=== PATIENT | male | born 1955 | race Caucasian/White ===

== ENCOUNTER 2020-10-03 14:34 | Inpatient (IN) | payer MEDICARE, BC, OTHER ==
[~2020-10-03 14:34] MED LIST: Iopamidol-370 76% 500 ML 1 ML ONE
[2020-10-03 15:09] LABS: #Lymphocytes 0.8 thou/uL (1.20-3.40); #Monocytes 0.7 thou/uL (0.11-0.59); %Basophils 0.2 % (0.0-1.0); %Eosinophils 0.3 % (0.0-10.0); %Lymphocytes 6.3 % (21.0-51.0); %Monocytes 5.5 % (0.0-10.0); %Neutrophils 87.7 % (42.0-75.0); Hemoglobin 14.5 g/dL (14.0-18.0); Mean Corpuscular HGB CONC 32.4 g/dL (32.0-36.0); Mean Corpuscular Hemoglobin 29.9 pg (27.0-31.0); Mean Corpuscular Volume 92.3 fL (78.0-98.0); Mean Platelet Volume 7.7 fL (7.4-10.4); Platelet Count 189 thou/uL (130-400); RBC Distribution Width 12.4 % (11.5-14.5); Red Blood Cell (RBC) Count 4.86 mill/uL (4.70-6.10); White Blood Cell (WBC) Count 12.5 thou/uL (4.8-10.8)
[2020-10-03 15:29] LABS: ALT (SGPT) 24 U/L (8-55); AST (SGOT) 15 U/L (5-34); Albumin 3.9 g/dL (3.4-4.8); Alkaline Phosphatase 102 U/L (40-110); Anion Gap 12 mmol/L (10-20); BUN (Urea Nitrogen) 13 mg/dL (8.4-25.7); Bilirubin, Total 0.9 mg/dL (0.2-1.2); Calc. Creatinine Clearance 0 mL/min (70-130); Calcium 8.3 mg/dL (7.8-10.44); Carbon Dioxide 24 mmol/L (23-31); Chloride 110 mmol/L (98-107); Globulin 2.8 g/dL (2.4-3.5); Glucose 153 mg/dL (80-115); Potassium 3.9 mmol/L (3.5-5.1); Protein, Total 6.7 g/dL (5.8-8.1); Sodium 142 mmol/L (136-145)
[2020-10-03 16:06] LABS: Bacteria/HPF None Seen HPF (None Seen); Bilirubin Negative (Negative); Blood, Urine Negative (Negative); Clarity Clear (Clear); Glucose, Urine (Dipstick) Normal (Negative); Ketone, Urine Negative (Negative); Leukocyte Negative Leu/uL (Negative); Nitrite Negative (Negative); Protein, Urine (Dipstick) 70 mg/dL (Neg-Trace); RBC/HPF 0-3 HPF (0-3); Specific Gravity, Urine 1.024 (1.002-1.036); Squamous Epithelial None Seen HPF (0-3); WBC/HPF 0-3 HPF (0-3); pH, Urine 5.5 (5.0-9.0)
[2020-10-03] MEDS ORDERED: Aspirin Chewable 81 MG TAB ONE (16:25)
[2020-10-03] MEDS ORDERED: Nitroglycerin 0.4 MG TAB (25 Tab Bottle) SL PRN (18:19)
[2020-10-03 18:22] LABS: Troponin I 0.039 ng/mL (< 0.028)
[2020-10-03] MEDS ORDERED: Senokot S 8.6-50 MG TAB PO PRN (18:27)
[2020-10-03] MEDS ORDERED: HYDROcodone/Acetaminophen 5/325 mg Tablet PO PRN (18:27)
[2020-10-03] MEDS ORDERED: Ondansetron ODT 4 MG TAB PO PRN (18:27)
[2020-10-03] MEDS ORDERED: Calcium Carbonate 500 MG ChewTAB PO PRN (18:27)
[2020-10-03] MEDS ORDERED: Acetaminophen 325 MG TAB PO PRN (18:27)
[2020-10-03] MEDS ORDERED: Ondansetron PF 4 MG/2 ML Vial IVP PRN (18:27)
[2020-10-03 19:56] LABS: Acetaminophen Less than 6.0 mcg/mL (10.0-30.0); Alcohol Less than 10 mg/dL (Less than 10); Salicylate Less than 8.0 mg/dL (15.0-30.0)
[2020-10-03 20:19] LABS: Troponin I 0.039 ng/mL (< 0.028)
[2020-10-03] MEDS ORDERED: Famotidine/PF 20 mg/2ml Vial SLOW IVP SCH (21:00)
[2020-10-03] MEDS: Famotidine 20 MG TAB PO SCH (21:25)
[2020-10-03 21:53] LABS: Amphetamine Not Detected (NotDetected); Barbiturates Screen Not Detected (NotDetected); Benzodiazepine Screen Not Detected (NotDetected); Cocaine Metabolite Screen Not Detected (NotDetected); Medtox Control Line Valid? VALID (VALID); Medtox Reader # READER 4; Methadone Not Detected (NotDetected); Methamphetamine Not Detected (NotDetected); Opiate Screen Not Detected (NotDetected); Oxycodone Screen Not Detected (NotDetected); Phencyclidine (PCP) Not Detected (NotDetected); THC/Cannabinoid Screen Not Detected (NotDetected); Tricyclic Screen Not Detected (NotDetected)
[2020-10-04] MEDS ORDERED: Acetaminophen 500 MG TAB PO SCH (00:45)
[2020-10-04 04:57] LABS: #Eosinphils 0.1 thou/uL (0.0-0.7); #Lymphocytes 1.8 thou/uL (1.20-3.40); #Monocytes 0.6 thou/uL (0.11-0.59); #Neutrophils 5.3 thou/uL (1.40-6.50); %Basophils 0.5 % (0.0-1.0); %Eosinophils 1.4 % (0.0-10.0); %Lymphocytes 23.2 % (21.0-51.0); %Neutrophils 66.9 % (42.0-75.0); Hemoglobin 13.3 g/dL (14.0-18.0); Mean Corpuscular HGB CONC 32.6 g/dL (32.0-36.0); Mean Corpuscular Hemoglobin 30.2 pg (27.0-31.0); Mean Corpuscular Volume 92.6 fL (78.0-98.0); Mean Platelet Volume 7.6 fL (7.4-10.4); Platelet Count 173 thou/uL (130-400); RBC Distribution Width 12.5 % (11.5-14.5); Red Blood Cell (RBC) Count 4.39 mill/uL (4.70-6.10); White Blood Cell (WBC) Count 7.9 thou/uL (4.8-10.8)
[2020-10-04 05:00] LABS: Hemoglobin A1c 5.1 % (4.0-6.0)
[2020-10-04 05:16] LABS: Anion Gap 10 mmol/L (10-20); BUN (Urea Nitrogen) 13 mg/dL (8.4-25.7); Calc. Creatinine Clearance 97 mL/min (70-130); Calcium 7.8 mg/dL (7.8-10.44); Carbon Dioxide 21 mmol/L (23-31); Cardiac Risk 3.8 (Less than 4.5); Chloride 114 mmol/L (98-107); Cholesterol 148 mg/dl (< 200 Desired); Glucose 102 mg/dL (80-115); HDL Cholesterol 39 mg/dL (>60 Neg Risk); LDL Cholesterol, Calculated 92 mg/dL; Potassium 4.1 mmol/L (3.5-5.1); Sodium 141 mmol/L (136-145); Triglycerides 85 mg/dL (Less than 150)
[2020-10-04 05:53] LABS: SARS-CoV-2 PCR by NAA Not Detected (NotDetected)
[2020-10-04] MEDS: Famotidine 20 MG TAB PO SCH ×2 (07:46→20:16)
[2020-10-04] MEDS ORDERED: Aspirin Chewable 81 MG TAB PO SCH (09:00)
[2020-10-04] MEDS ORDERED: Iopamidol 370 76% 100 ML VIAL ONE (10:44)
[2020-10-04] MEDS ORDERED: Lidocaine 1% (PF) 30 ML VIAL ONE (11:43)
[2020-10-04] MEDS ORDERED: Fentanyl 100 MCG/2 ML VIAL ONE (12:23)
[2020-10-04] MEDS ORDERED: Midazolam HCl 2 mg/2 ml Vial ONE (12:23)
[2020-10-04] MEDS ORDERED: Fioricet 325/50/40 mg Tablet PO PRN (14:19)
[2020-10-04] MEDS ORDERED: Diazepam 5 MG TAB PO PRN (21:01)
[2020-10-04] MEDS ORDERED: Communication Order-Pharmacy FS ONE (21:01)
[2020-10-05 05:21] LABS: #Basophils 0.1 thou/uL (0.0-0.2); #Eosinphils 0.2 thou/uL (0.0-0.7); #Lymphocytes 1.8 thou/uL (1.20-3.40); #Neutrophils 7.3 thou/uL (1.40-6.50); %Basophils 0.6 % (0.0-1.0); %Eosinophils 2.4 % (0.0-10.0); %Lymphocytes 17.6 % (21.0-51.0); %Monocytes 9.8 % (0.0-10.0); %Neutrophils 69.7 % (42.0-75.0); Hemoglobin 14.7 g/dL (14.0-18.0); Mean Corpuscular HGB CONC 32.3 g/dL (32.0-36.0); Mean Corpuscular Volume 92.7 fL (78.0-98.0); Mean Platelet Volume 8.1 fL (7.4-10.4); Platelet Count 184 thou/uL (130-400); RBC Distribution Width 12.4 % (11.5-14.5); Red Blood Cell (RBC) Count 4.89 mill/uL (4.70-6.10); White Blood Cell (WBC) Count 10.4 thou/uL (4.8-10.8)
[2020-10-05 05:52] LABS: Anion Gap 10 mmol/L (10-20); BUN (Urea Nitrogen) 13 mg/dL (8.4-25.7); Calc. Creatinine Clearance 93 mL/min (70-130); Calcium 8.2 mg/dL (7.8-10.44); Carbon Dioxide 27 mmol/L (23-31); Chloride 108 mmol/L (98-107); Glucose 103 mg/dL (80-115); Potassium 4.4 mmol/L (3.5-5.1); Sodium 141 mmol/L (136-145)
[2020-10-05] MEDS ORDERED: Vancomycin 1.5 GRAM/300 ML BAG ONE (08:11)
[2020-10-05] MEDS ORDERED: EPINEPHrine 1 MG/ML AMP ONE ×2 (10:10→11:00)
[2020-10-05] MEDS ORDERED: Albumin 5% 500 ML ONE ×2 (10:10→10:21)
[2020-10-05] MEDS ORDERED: Bupivacaine PF 0.5% 30 ML VIAL ONE (10:10)
[2020-10-05] MEDS ORDERED: Dexamethasone 4 mg/ml Vial ONE (10:10)
[2020-10-05] MEDS ORDERED: Dexmedetomidine 200 MCG/2 ML VIAL ONE (10:20)
[2020-10-05] MEDS ORDERED: Fentanyl 100 MCG/2 ML VIAL ONE ×2 (10:20→13:20)
[2020-10-05] MEDS ORDERED: Midazolam HCl 2 mg/2 ml Vial ONE (10:20)
[2020-10-05] MEDS ORDERED: Phenylephrine 10 MG/ML VIAL ONE (10:20)
[2020-10-05] MEDS ORDERED: Vancomycin 1.5 GRAM/300 ML BAG 1.5 GM in Premix Bag 1 BAG IVPB SCH (10:30)
[2020-10-05] MEDS ORDERED: Sodium Bicarb 50 MEQ/50 ML Abboject 8.4% SYRINGE ONE (11:00)
[2020-10-05] MEDS ORDERED: PHENYLEPHRINE-NS 100 MCG/ML 10 ML SYRINGE ONE ×4 (11:00→13:56)
[2020-10-05] MEDS ORDERED: Vecuronium 10 MG VIAL ONE (11:00)
[2020-10-05] MEDS ORDERED: Nitroglycerin 50 MG/250 ML BOT ONE (11:00)
[2020-10-05] MEDS ORDERED: Calcium Chloride 1 GM/10 ML Abboject SYRINGE ONE (11:00)
[2020-10-05] MEDS ORDERED: Protamine Sulfate 250 MG/25 ML VIAL ONE (11:00)
[2020-10-05] MEDS ORDERED: Aminocaproic Acid 5 GM/20 ML VIAL ONE (11:00)
[2020-10-05] MEDS ORDERED: Magnesium Sulfate 1 GM/2 ML VIAL ONE (11:00)
[2020-10-05] MEDS ORDERED: Heparin 5,000 UNITS/ML VIAL ONE (11:00)
[2020-10-05] MEDS ORDERED: Potassium Chloride 60 MEQ/30 ML VIAL ONE (11:00)
[2020-10-05] MEDS ORDERED: Lidocaine 2% PF 100 mg/5 ml Syringe ONE (11:00)
[2020-10-05] MEDS ORDERED: Heparin 30,000 units/30 ml VIAL ONE (11:00)
[2020-10-05] MEDS ORDERED: Papaverine 60 MG/2 ML VIAL ONE (11:00)
[2020-10-05] MEDS ORDERED: Thrombin 5000 UNITS/5 ML VIAL ONE (11:00)
[2020-10-05] MEDS ORDERED: Rocuronium Bromide 10 MG/ML (10ML VIAL) ONE (11:00)
[2020-10-05] MEDS ORDERED: Mannitol 12.5 GM/50 ML ONE (11:00)
[2020-10-05] MEDS ORDERED: Cardioplegic Soln 1,000 ML BAG ONE (11:00)
[2020-10-05] MEDS ORDERED: Insulin Regular 300 UNITS/3 ML VIAL ONE (13:20)
[2020-10-05] MEDS ORDERED: Potassium Chloride 20 MEQ/100 ML PREMIX BAG IVPB PRN (15:24)
[2020-10-05] MEDS ORDERED: Bisacodyl 10 MG SUPP PR PRN (15:24)
[2020-10-05] MEDS ORDERED: Guaifenesin DM 100-10/5 ML UDCUP PO PRN (15:24)
[2020-10-05] MEDS ORDERED: Fentanyl 100 MCG/2 ML VIAL SLOW IVP PRN ×2 (15:24)
[2020-10-05] MEDS ORDERED: Nitroglycerin 50 MG/250 ML BOT 250 ML IVPB PRN (15:24)
[2020-10-05] MEDS ORDERED: niCARdipine 25 MG in Sodium Chloride 0.9% 250 ML 240 ML IVPB PRN (15:24)
[2020-10-05] MEDS ORDERED: Bisacodyl 5 MG TAB PO PRN (15:24)
[2020-10-05] MEDS ORDERED: Norepinephrine 8 MG/0.9% NS 250 ML IVPB PRN (15:24)
[2020-10-05] MEDS ORDERED: Ondansetron PF 4 MG/2 ML Vial IVP PRN (15:24)
[2020-10-05] MEDS ORDERED: traMADol HCl 50 MG TAB PO PRN (15:24)
[2020-10-05] MEDS ORDERED: Acetaminophen 325 MG TAB PO PRN (15:24)
[2020-10-05] MEDS ORDERED: hydrALAZINE 20 MG/ML VIAL SLOW IVP PRN (15:24)
[2020-10-05] MEDS ORDERED: Hetastarch 6% 500 ML 500 ML IVPB PRN (15:24)
[2020-10-05] MEDS ORDERED: Morphine 2 MG/ML VIAL SLOW IVP PRN (15:24)
[2020-10-05] MEDS ORDERED: D5 1/2 NS w/20 mEq KCL 1,000 ML IV SCH (15:24)
[2020-10-05] MEDS ORDERED: Mag-Al 1200 mg/1200 mg/30 ML UDCUP PO PRN (15:24)
[2020-10-05] MEDS ORDERED: Morphine 4 MG/ML VIAL ONE (15:49)
[2020-10-05 15:50] LABS: #Eosinphils 0.2 thou/uL (0.0-0.7); #Lymphocytes 1.7 thou/uL (1.20-3.40); #Monocytes 0.9 thou/uL (0.11-0.59); #Neutrophils 14.3 thou/uL (1.40-6.50); %Basophils 0.2 % (0.0-1.0); %Eosinophils 1.2 % (0.0-10.0); %Lymphocytes 9.7 % (21.0-51.0); %Monocytes 5.4 % (0.0-10.0); %Neutrophils 83.5 % (42.0-75.0); Hemoglobin 11.9 g/dL (14.0-18.0); Mean Corpuscular HGB CONC 33.1 g/dL (32.0-36.0); Mean Corpuscular Hemoglobin 30.7 pg (27.0-31.0); Mean Corpuscular Volume 92.7 fL (78.0-98.0); Mean Platelet Volume 7.5 fL (7.4-10.4); Platelet Count 157 thou/uL (130-400); RBC Distribution Width 12.4 % (11.5-14.5); Red Blood Cell (RBC) Count 3.87 mill/uL (4.70-6.10); White Blood Cell (WBC) Count 17.1 thou/uL (4.8-10.8)
[2020-10-05 15:53] LABS: INR-International Normal Ratio 1.3; Prothrombin Time 16.6 sec (12.0-14.7)
[2020-10-05 15:54] LABS: PTT 41.1 sec (22.9-36.1)
[2020-10-05] MEDS ORDERED: Dextrose 5% in Water 1,000 ML IV PRN (16:00)
[2020-10-05] MEDS ORDERED: Magnesium 2 GM/50 ML 2 GM in Premix Bag 1 BAG IVPB SCH (16:00)
[2020-10-05] MEDS ORDERED: Dextrose 50% Abboject 50 ML SYRINGE SLOW IVP PRN (16:00)
[2020-10-05 16:02] LABS: Actual Bicarbonate (HCO3a) 21.9 mEq/L (22-28); Analyzer IN Cardio ER; Base Excess (BEa) -3.6 mEq/L (-2.0 to +3.0); CO2 Tension 40.9 mmHg (35.0-45.0); Calcium, Ionized (arterial) 0.97 mmol/L (1.12-1.30); Carboxyhemoglobin (COHb) 0.3 gm% (0.0-3.0); Hemoglobin (Hb) 12.7 g/dL (14.0-18.0); O2 Tension (PaO2), arterial 67.9 mmHg (> 80.0); Potassium - ABG Lab 3.76 mmol/L (3.70-5.30); pH, Arterial 7.35 (7.35-7.45)
[2020-10-05 16:03] LABS: Puncture Site Arterial Line
[2020-10-05 16:04] LABS: ALV-art Gradient 308.775 mmHg (0-20)
[2020-10-05 16:09] LABS: Anion Gap 9 mmol/L (10-20); BUN (Urea Nitrogen) 10 mg/dL (8.4-25.7); Calc. Creatinine Clearance 108 mL/min (70-130); Calcium 6.7 mg/dL (7.8-10.44); Carbon Dioxide 27 mmol/L (23-31); Chloride 112 mmol/L (98-107); Glucose 165 mg/dL (80-115); Potassium 3.8 mmol/L (3.5-5.1); Sodium 144 mmol/L (136-145)
[2020-10-05] MEDS: Insulin Regular 300 UNITS/3 ML VIAL SC PRN (16:52)
[2020-10-05] MEDS: Ketorolac Tromethamine 30 MG/ML VIAL IVP SCH ×2 (17:45→23:32)
[2020-10-05] MEDS: Vancomycin 1.5 GRAM/300 ML BAG 1.5 GM in Premix Bag 1 BAG IVPB SCH (20:45)
[2020-10-05] MEDS ORDERED: Famotidine/PF 20 mg/2ml Vial SLOW IVP SCH (21:00)
[2020-10-05] MEDS ORDERED: Atorvastatin Calcium 20 MG TAB PO SCH (21:00)
[2020-10-05 21:45] LABS: Hemoglobin 10.5 g/dL (14.0-18.0)
[2020-10-05 22:07] LABS: Potassium 4.6 mmol/L (3.5-5.1)
[2020-10-05] MEDS: traMADol HCl 50 MG TAB PO PRN (23:33)
[2020-10-06] MEDS: Insulin Regular 300 UNITS/3 ML VIAL SC PRN ×2 (00:41→05:09)
[2020-10-06 04:30] LABS: #Lymphocytes 0.6 thou/uL (1.20-3.40); #Monocytes 0.7 thou/uL (0.11-0.59); #Neutrophils 5.7 thou/uL (1.40-6.50); %Basophils 0.1 % (0.0-1.0); %Lymphocytes 7.9 % (21.0-51.0); %Monocytes 10.3 % (0.0-10.0); %Neutrophils 81.7 % (42.0-75.0); Hemoglobin 9.4 g/dL (14.0-18.0); Mean Corpuscular HGB CONC 32.5 g/dL (32.0-36.0); Mean Corpuscular Hemoglobin 30.3 pg (27.0-31.0); Mean Corpuscular Volume 93.1 fL (78.0-98.0); Platelet Count 114 thou/uL (130-400); RBC Distribution Width 12.4 % (11.5-14.5); Red Blood Cell (RBC) Count 3.09 mill/uL (4.70-6.10); White Blood Cell (WBC) Count 6.9 thou/uL (4.8-10.8)
[2020-10-06 04:52] LABS: Anion Gap 7 mmol/L (10-20); BUN (Urea Nitrogen) 13 mg/dL (8.4-25.7); Calc. Creatinine Clearance 104 mL/min (70-130); Calcium 6.8 mg/dL (7.8-10.44); Carbon Dioxide 23 mmol/L (23-31); Chloride 113 mmol/L (98-107); Glucose 126 mg/dL (80-115); Potassium 4.2 mmol/L (3.5-5.1); Sodium 139 mmol/L (136-145)
[2020-10-06] MEDS: Ketorolac Tromethamine 30 MG/ML VIAL IVP SCH ×3 (05:04→17:51)
[2020-10-06] MEDS: traMADol HCl 50 MG TAB PO PRN ×2 (07:56→14:28)
[2020-10-06] MEDS: Aspirin 325 MG TAB PO SCH ×2 (07:57→08:23)
[2020-10-06] MEDS: Vancomycin 1.5 GRAM/300 ML BAG 1.5 GM in Premix Bag 1 BAG IVPB SCH (07:57)
[2020-10-06] MEDS ORDERED: Magnesium 2 GM/50 ML 2 GM in Premix Bag 1 BAG IVPB SCH (09:00)
[2020-10-06] MEDS: Atorvastatin Calcium 20 MG TAB PO SCH (20:34)
[2020-10-07] MEDS: traMADol HCl 50 MG TAB PO PRN (01:10)
[2020-10-07] MEDS: Ketorolac Tromethamine 30 MG/ML VIAL IVP SCH ×4 (01:14→21:12)
[2020-10-07 03:50] LABS: #Basophils 0.1 thou/uL (0.0-0.2); #Eosinphils 0.3 thou/uL (0.0-0.7); #Lymphocytes 1.2 thou/uL (1.20-3.40); #Monocytes 1.1 thou/uL (0.11-0.59); #Neutrophils 7.7 thou/uL (1.40-6.50); %Basophils 0.6 % (0.0-1.0); %Eosinophils 2.5 % (0.0-10.0); %Lymphocytes 11.4 % (21.0-51.0); %Monocytes 10.3 % (0.0-10.0); %Neutrophils 75.3 % (42.0-75.0); Mean Corpuscular HGB CONC 33.4 g/dL (32.0-36.0); Mean Corpuscular Hemoglobin 31.1 pg (27.0-31.0); Mean Platelet Volume 7.8 fL (7.4-10.4); Platelet Count 125 thou/uL (130-400); RBC Distribution Width 12.5 % (11.5-14.5); Red Blood Cell (RBC) Count 3.21 mill/uL (4.70-6.10); White Blood Cell (WBC) Count 10.3 thou/uL (4.8-10.8)
[2020-10-07 04:01] LABS: Anion Gap 10 mmol/L (10-20); BUN (Urea Nitrogen) 23 mg/dL (8.4-25.7); Calc. Creatinine Clearance 87 mL/min (70-130); Calcium 7.2 mg/dL (7.8-10.44); Carbon Dioxide 21 mmol/L (23-31); Chloride 108 mmol/L (98-107); Glucose 114 mg/dL (80-115); Potassium 4.1 mmol/L (3.5-5.1); Sodium 135 mmol/L (136-145)
[2020-10-07 05:33] VITALS: BMI 22.1
[2020-10-07] MEDS ORDERED: Milk Of Magnesia 30 ML UDCUP PO PRN (08:04)
[2020-10-07] MEDS ORDERED: Nitroglycerin 0.4 MG TAB (25 Tab Bottle) SL PRN (08:04)
[2020-10-07] MEDS ORDERED: Mineral Oil ENEMA PR PRN (08:04)
[2020-10-07] MEDS ORDERED: Zolpidem Tartrate 5 MG TAB PO PRN (08:04)
[2020-10-07] MEDS ORDERED: Bisacodyl 5 MG TAB PO PRN (08:04)
[2020-10-07] MEDS ORDERED: Guaifenesin DM 100-10/5 ML UDCUP PO PRN (08:04)
[2020-10-07] MEDS ORDERED: Mag-Al 1200 mg/1200 mg/30 ML UDCUP PO PRN (08:04)
[2020-10-07] MEDS ORDERED: Bisacodyl 10 MG SUPP PR PRN (08:04)
[2020-10-07] MEDS ORDERED: diphenhydrAMINE 25 MG CAP PO PRN (08:04)
[2020-10-07] MEDS: Potassium Chloride 10 MEQ TAB PO SCH (09:00)
[2020-10-07] MEDS: Furosemide 40 MG TAB PO SCH (09:00)
[2020-10-07] MEDS: Aspirin 325 MG TAB PO SCH (09:00)
[2020-10-07] MEDS ORDERED: ALPRAZolam 0.25 MG TAB PO PRN (10:15)
[2020-10-07] MEDS: Atorvastatin Calcium 20 MG TAB PO SCH (21:12)
[2020-10-08] MEDS: Ketorolac Tromethamine 30 MG/ML VIAL IVP SCH ×4 (00:40→17:55)
[2020-10-08 04:24] LABS: #Basophils 0.1 thou/uL (0.0-0.2); #Eosinphils 0.4 thou/uL (0.0-0.7); #Lymphocytes 1.3 thou/uL (1.20-3.40); #Monocytes 0.9 thou/uL (0.11-0.59); #Neutrophils 5.1 thou/uL (1.40-6.50); %Basophils 0.7 % (0.0-1.0); %Eosinophils 5.3 % (0.0-10.0); %Lymphocytes 17.3 % (21.0-51.0); %Monocytes 11.3 % (0.0-10.0); %Neutrophils 65.4 % (42.0-75.0); Hemoglobin 9.9 g/dL (14.0-18.0); Mean Corpuscular HGB CONC 33.2 g/dL (32.0-36.0); Mean Corpuscular Hemoglobin 30.6 pg (27.0-31.0); Mean Corpuscular Volume 92.3 fL (78.0-98.0); Mean Platelet Volume 8.2 fL (7.4-10.4); Platelet Count 125 thou/uL (130-400); RBC Distribution Width 12.3 % (11.5-14.5); Red Blood Cell (RBC) Count 3.23 mill/uL (4.70-6.10); White Blood Cell (WBC) Count 7.8 thou/uL (4.8-10.8)
[2020-10-08 04:45] LABS: Anion Gap 14 mmol/L (10-20); BUN (Urea Nitrogen) 27 mg/dL (8.4-25.7); Calc. Creatinine Clearance 87 mL/min (70-130); Calcium 7.2 mg/dL (7.8-10.44); Carbon Dioxide 16 mmol/L (23-31); Chloride 110 mmol/L (98-107); Glucose 102 mg/dL (80-115); Potassium 4.1 mmol/L (3.5-5.1); Sodium 136 mmol/L (136-145)
[2020-10-08] MEDS: Furosemide 40 MG TAB PO SCH (08:43)
[2020-10-08] MEDS: Aspirin 325 MG TAB PO SCH (08:44)
[2020-10-08] MEDS: Potassium Chloride 10 MEQ TAB PO SCH (08:44)
[2020-10-08] MEDS: Atorvastatin Calcium 20 MG TAB PO SCH (20:07)
[2020-10-08] MEDS: Metoprolol Tartrate 25 MG TAB PO SCH (20:07)
[2020-10-09 04:40] LABS: #Eosinphils 0.4 thou/uL (0.0-0.7); #Lymphocytes 1.1 thou/uL (1.20-3.40); #Monocytes 0.8 thou/uL (0.11-0.59); #Neutrophils 4.8 thou/uL (1.40-6.50); %Basophils 0.5 % (0.0-1.0); %Lymphocytes 15.6 % (21.0-51.0); %Monocytes 10.5 % (0.0-10.0); %Neutrophils 67.3 % (42.0-75.0); Hemoglobin 10.4 g/dL (14.0-18.0); Mean Corpuscular HGB CONC 32.7 g/dL (32.0-36.0); Mean Corpuscular Hemoglobin 30.2 pg (27.0-31.0); Mean Corpuscular Volume 92.1 fL (78.0-98.0); Platelet Count 162 thou/uL (130-400); RBC Distribution Width 12.2 % (11.5-14.5); Red Blood Cell (RBC) Count 3.46 mill/uL (4.70-6.10); White Blood Cell (WBC) Count 7.1 thou/uL (4.8-10.8)
[2020-10-09 04:59] LABS: Anion Gap 12 mmol/L (10-20); BUN (Urea Nitrogen) 21 mg/dL (8.4-25.7); Calc. Creatinine Clearance 97 mL/min (70-130); Calcium 7.5 mg/dL (7.8-10.44); Carbon Dioxide 19 mmol/L (23-31); Chloride 111 mmol/L (98-107); Glucose 98 mg/dL (80-115); Potassium 4.2 mmol/L (3.5-5.1); Sodium 138 mmol/L (136-145)
[2020-10-09] MEDS: Metoprolol Tartrate 25 MG TAB PO SCH (09:35)
[2020-10-09] MEDS: Aspirin 325 MG TAB PO SCH (09:35)
[2020-10-09] MEDS: Furosemide 40 MG TAB PO SCH (09:35)
[2020-10-09] MEDS: Potassium Chloride 10 MEQ TAB PO SCH (09:35)
[2020-10-09 11:41] VITALS: TEMP 98.7
[2020-10-09 13:16] VITALS: BP 109/60
[2020-10-10 12:31] LABS: Actual Bicarbonate (HCO3a) 20.9 mEq/L (22-28); Analyzer IN Cardio OR; Base Excess (BEa) -2.5 mEq/L (-2.0 to +3.0); CO2 Tension 32.3 mmHg (35.0-45.0); Calcium, Ionized (arterial) 1.09 mmol/L (1.12-1.30); Carboxyhemoglobin (COHb) 0.7 gm% (0.0-3.0); Hemoglobin (Hb) 13.7 g/dL (14.0-18.0); Potassium - ABG Lab 3.99 mmol/L (3.70-5.30); pH, Arterial 7.43 (7.35-7.45)
[2020-10-10 12:32] LABS: Actual Bicarbonate (HCO3a) 17.6 mEq/L (22-28); Analyzer IN Cardio OR; Base Excess (BEa) -5.9 mEq/L (-2.0 to +3.0); Calcium, Ionized (arterial) 1.01 mmol/L (1.12-1.30); Carboxyhemoglobin (COHb) 0.4 gm% (0.0-3.0); O2 Tension (PaO2), arterial 315.2 mmHg (> 80.0); Potassium - ABG Lab 3.64 mmol/L (3.70-5.30)
[2020-10-10 12:33] LABS: Actual Bicarbonate (HCO3a) 21.3 mEq/L (22-28); Analyzer IN Cardio OR; Base Excess (BEa) -3.5 mEq/L (-2.0 to +3.0); CO2 Tension 37.5 mmHg (35.0-45.0); Calcium, Ionized (arterial) 0.97 mmol/L (1.12-1.30); Carboxyhemoglobin (COHb) 0.3 gm% (0.0-3.0); Hemoglobin (Hb) 10.2 g/dL (14.0-18.0); Potassium - ABG Lab 5.08 mmol/L (3.70-5.30); pH, Arterial 7.37 (7.35-7.45)
[2020-10-10 12:33] LABS: Actual Bicarbonate (HCO3v) 24 mEq/L (22-28); Analyzer IN Cardio OR; Base Excess -2.2 mEq/L (-2.0 to +3.0); Calcium, Ionized (venous) 0.96 mmol/L (1.16-1.32); Chloride (VBG) 108 mmol/L (98-106); Potassium (VBG) 5.19 mmol/L (3.70-5.30); Sodium 134.3 mmol/L (133-146); pH (venous) 7.34 (7.32-7.43)
[2020-10-10 12:34] LABS: Actual Bicarbonate (HCO3a) 20.4 mEq/L (22-28); Analyzer IN Cardio OR; Base Excess (BEa) -4.2 mEq/L (-2.0 to +3.0); CO2 Tension 35.9 mmHg (35.0-45.0); Calcium, Ionized (arterial) 0.87 mmol/L (1.12-1.30); Carboxyhemoglobin (COHb) 0.1 gm% (0.0-3.0); Hemoglobin (Hb) 10.9 g/dL (14.0-18.0); O2 Tension (PaO2), arterial 75.2 mmHg (> 80.0); Potassium - ABG Lab 3.34 mmol/L (3.70-5.30); pH, Arterial 7.37 (7.35-7.45)
[2020-10-10 12:34] LABS: Analyzer IN Cardio OR; Base Excess (BEa) -2.9 mEq/L (-2.0 to +3.0); CO2 Tension 38.8 mmHg (35.0-45.0); Calcium, Ionized (arterial) 0.95 mmol/L (1.12-1.30); Hemoglobin (Hb) 9.7 g/dL (14.0-18.0); O2 Tension (PaO2), arterial 331.2 mmHg (> 80.0); Potassium - ABG Lab 5.06 mmol/L (3.70-5.30); pH, Arterial 7.37 (7.35-7.45)
[2020-10-10 12:34] LABS: Puncture Site Arterial Line
[2020-10-10 12:35] LABS: Puncture Site Arterial Line
[2020-10-10 12:38] LABS: Puncture Site Arterial Line
[2020-10-10 12:39] LABS: Puncture Site Arterial Line
[2020-10-10 12:39] LABS: Puncture Site Arterial Line
== END 2020-10-09 16:00 | disposition home or self-care (01) | DRG 216 ==
LOC: ERS 14:34 → 2SW 17:33 → OBSVTOIN 10-04 15:01 → CCU 10-05 07:56 → 2NO 10-07 18:04
PROVIDERS: ADMIT Internal Medicine; ATTEND Internal Medicine
PROC: B2111ZZ Fluoroscopy of Multiple Coronary Arteries using Low Osmolar Contrast (ICD-10-PCS; 2020-10-04)
PROC: 02RF08Z Replacement of Aortic Valve with Zooplastic Tissue, Open Approach (ICD-10-PCS; principal; 2020-10-05)
PROC: 02100Z9 Bypass Coronary Artery, One Artery from Left Internal Mammary, Open Approach (ICD-10-PCS; 2020-10-05)
PROC: 021009W Bypass Coronary Artery, One Artery from Aorta with Autologous Venous Tissue, Open Approach (ICD-10-PCS; 2020-10-05)
PROC: 06BQ0ZZ Excision of Left Saphenous Vein, Open Approach (ICD-10-PCS; 2020-10-05)
PROC: 5A1221Z Performance of Cardiac Output, Continuous (ICD-10-PCS; 2020-10-05)
DX: I35.0 Nonrheumatic aortic (valve) stenosis (principal); I50.33 Acute on chronic diastolic (congestive) heart failure; L40.50 Arthropathic psoriasis, unspecified; Z20.822 Contact with and (suspected) exposure to COVID-19; K21.9 Gastro-esophageal reflux disease without esophagitis; F17.220 Nicotine dependence, chewing tobacco, uncomplicated; I25.10 Atherosclerotic heart disease of native coronary artery without angina pectoris; Z88.0 Allergy status to penicillin; Z79.1 Long term (current) use of non-steroidal anti-inflammatories (NSAID); Z79.899 Other long term (current) drug therapy
CPT/HCPCS: 36415; 36416; 36430; 70450; 71045; 71275; 80048; 80053; 80061; 80306; 80307; 81003; 81015; 82550; 82607; 82746; 82805; 83036; 83605; 83735; 83880; 84146; 84443; 84484; 85025; 85379; 85610; 85730; 86850; 86900; 86901; 87040; 87635; 93005; 93010; 93306; 93454; 93798; 93880; 94002; 94760; 97139; 99152; 99153; G0378; J0171; J1100; J1642; J1644; J1815; J1885; J2001; J2150; J2250; J2270; J2370; J2440; J2720; J3010; J3370; J3475; J3480; P9035; P9045; P9059; Q9967; S0017; S0020; S0028; U0003; U0005

== ENCOUNTER 2021-12-20 07:42 | Outpatient (CLI) | payer MEDICARE, BC ==
[2021-12-20] MEDS ORDERED: Iopamidol 370 76% 100 ML VIAL ONE (08:00)
[2021-12-20 08:33] LABS: Estimated GFR-MDRD - POC Greater than 90
== END 2021-12-20 07:43 | disposition home or self-care (01) ==
LOC: CT 07:42
PROVIDERS: ATTEND Thoracic Surgery (Cardiothoracic Vascular Surgery)
DX: I35.0 Nonrheumatic aortic (valve) stenosis (principal); I25.10 Atherosclerotic heart disease of native coronary artery without angina pectoris; I65.23 Occlusion and stenosis of bilateral carotid arteries
CPT/HCPCS: 70498; 82565; Q9967

== ENCOUNTER 2021-12-25 13:40 | Outpatient (CLI) | payer MEDICARE, BC ==
[2021-12-25 14:44] LABS: Hemoglobin 14.9 g/dL (13.5-17.5); Mean Corpuscular HGB CONC 33.2 g/dL (32.0-36.0); Mean Corpuscular Hemoglobin 29.8 pg (27.0-33.0); Mean Corpuscular Volume 89.8 fl (81.2-95.1); Mean Platelet Volume 9.5 fl (7.4-10.4); Platelet Count 226 10x3/uL (150-450); RBC Distribution Width 13.7 % (11.5-14.5); White Blood Cell (WBC) Count 7.4 10x3/uL (3.5-10.5)
[2021-12-25 15:15] LABS: Anion Gap 14 mmol/L (10-20); BUN (Urea Nitrogen) 22 mg/dL (8.4-25.7); Calc. Creatinine Clearance 0 mL/min (70-130); Calcium 8.9 mg/dL (7.8-10.44); Carbon Dioxide 21 mmol/L (23-31); Chloride 109 mmol/L (98-107); Glucose 94 mg/dL (80-115); Potassium 4.6 mmol/L (3.5-5.1); Sodium 139 mmol/L (136-145)
== END 2021-12-25 13:41 | disposition home or self-care (01) ==
LOC: LABBT 13:40
PROVIDERS: ATTEND Thoracic Surgery (Cardiothoracic Vascular Surgery)
DX: Z01.812 Encounter for preprocedural laboratory examination (principal); Z20.822 Contact with and (suspected) exposure to COVID-19
CPT/HCPCS: 80048; 85027; U0003; U0005

== ENCOUNTER 2021-12-25 16:15 | Inpatient (IN) | payer MEDICARE, BC ==
[2021-12-27] MEDS ORDERED: Protamine Sulfate 50 MG/5 ML VIAL ONE (07:54)
[2021-12-27] MEDS ORDERED: Heparin 5,000 UNITS/ML VIAL ONE (07:54)
[2021-12-27] MEDS ORDERED: Fentanyl 100 MCG/2 ML VIAL ONE (08:51)
[2021-12-27] MEDS ORDERED: Midazolam HCl 2 mg/2 ml Vial ONE (08:51)
[2021-12-27] MEDS ORDERED: EPINEPHrine 1 MG/ML AMP ONE (09:57)
[2021-12-27] MEDS ORDERED: Bupivacaine PF 0.5% 30 ML VIAL ONE (09:57)
[2021-12-27] MEDS ORDERED: Dexamethasone 4 mg/ml Vial ONE (09:57)
[2021-12-27] MEDS ORDERED: Clindamycin/D5W 900 mg/50 ml Premix Bag ONE ×3 (10:01→20:26)
[2021-12-27] MEDS ORDERED: ePHEDrine 50 MG/ML VIAL ONE (10:11)
[2021-12-27] MEDS ORDERED: Ondansetron PF 4 MG/2 ML Vial ONE (10:11)
[2021-12-27] MEDS ORDERED: Lidocaine 1% PF 5 ML VIAL ONE (10:11)
[2021-12-27] MEDS ORDERED: Rocuronium Bromide 10 MG/ML (10ML VIAL) ONE (10:11)
[2021-12-27] MEDS ORDERED: PROPOFOL 200 MG/20 ML VIAL ONE (10:11)
[2021-12-27] MEDS ORDERED: Glycopyrrolate 0.2 MG/ML 5 ML SYRINGE ONE (10:11)
[2021-12-27] MEDS ORDERED: PHENYLEPHRINE-NS 100 MCG/ML 10 ML SYRINGE ONE (11:35)
[2021-12-27] MEDS ORDERED: Phenylephrine 40 MG in Sodium Chloride 0.9% 250 ML 250 ML IVPB PRN (11:42)
[2021-12-27] MEDS ORDERED: Fentanyl 100 MCG/2 ML VIAL SLOW IVP PRN (11:42)
[2021-12-27] MEDS ORDERED: traMADol HCl 50 MG TAB PO PRN ×2 (11:42)
[2021-12-27] MEDS ORDERED: Ondansetron PF 4 MG/2 ML Vial IVP PRN (11:42)
[2021-12-27] MEDS ORDERED: Calcium Carbonate 500 MG ChewTAB PO PRN (11:42)
[2021-12-27] MEDS ORDERED: Acetaminophen 325 MG TAB PO PRN (11:42)
[2021-12-27] MEDS ORDERED: Acetaminophen ER (8hr) 650 MG TAB PO PRN (11:42)
[2021-12-27] MEDS ORDERED: Docusate 100 MG CAP PO PRN (11:42)
[2021-12-27] MEDS ORDERED: Nitroglycerin 50 MG/250 ML BOT 250 ML IVPB PRN (11:42)
[2021-12-27] MEDS ORDERED: hydrALAZINE 20 MG/ML VIAL SLOW IVP PRN (11:42)
[2021-12-27] MEDS: Clindamycin/D5W 900 MG in Premix Bag 1 BAG IVPB SCH ×2 (16:23→22:23)
[2021-12-27] MEDS: Sodium Chloride 0.9% 1,000 ML IV SCH ×2 (19:49→22:14)
[2021-12-27] MEDS ORDERED: Atorvastatin Calcium 20 MG TAB PO SCH (21:00)
[2021-12-27 21:46] VITALS: BMI 23.2
[2021-12-28] MEDS: Clindamycin/D5W 900 MG in Premix Bag 1 BAG IVPB SCH (04:16)
[2021-12-28 07:51] VITALS: TEMP 97.9
[2021-12-28] MEDS ORDERED: Potassium Chloride 10 MEQ TAB PO SCH (08:00)
[2021-12-28] MEDS ORDERED: Metoprolol Tartrate 25 MG TAB PO SCH (09:00)
[2021-12-28] MEDS ORDERED: Apixaban 5 MG TAB PO SCH (09:00)
[2021-12-28] MEDS ORDERED: Aspirin 81 mg Enteric Coated Tablet PO SCH (09:00)
[2021-12-28] MEDS ORDERED: Lisinopril 2.5 MG TAB PO SCH (09:00)
[2021-12-28] MEDS ORDERED: Furosemide 40 MG TAB PO SCH (09:00)
[2021-12-28] MEDS ORDERED: Clopidogrel Bisulfate 75 MG TAB PO SCH (12:00)
== END 2021-12-28 09:04 | disposition home or self-care (01) | DRG 36 ==
LOC: SURG A 12-27 07:43 → CCU 12-27 21:36
PROVIDERS: ADMIT Thoracic Surgery (Cardiothoracic Vascular Surgery); ATTEND Thoracic Surgery (Cardiothoracic Vascular Surgery)
PROC: 037K3DZ Dilation of Right Internal Carotid Artery with Intraluminal Device, Percutaneous Approach (ICD-10-PCS; principal; 2021-12-27)
DX: I65.23 Occlusion and stenosis of bilateral carotid arteries (principal); R00.1 Bradycardia, unspecified; Z20.822 Contact with and (suspected) exposure to COVID-19; Z88.0 Allergy status to penicillin; Z95.1 Presence of aortocoronary bypass graft; Z98.890 Other specified postprocedural states
CPT/HCPCS: 76000; 80048; 85027; C1876; C1884; J0171; J1100; J1644; J2250; J2405; J2704; J2720; J3010; J3490; S0020; U0003; U0005

== ENCOUNTER 2022-02-14 13:19 | Outpatient (CLI) | payer MEDICARE, BC ==
[2022-02-14 15:00] LABS: Hemoglobin 13.8 g/dL (13.5-17.5); Mean Corpuscular HGB CONC 32.9 g/dL (32.0-36.0); Mean Corpuscular Hemoglobin 29.7 pg (27.0-33.0); Mean Corpuscular Volume 90.3 fl (81.2-95.1); Mean Platelet Volume 9.7 fl (7.4-10.4); Platelet Count 264 10x3/uL (150-450); RBC Distribution Width 13.7 % (11.5-14.5); Red Blood Cell (RBC) Count 4.65 10x6/uL (4.32-5.72); White Blood Cell (WBC) Count 7.6 10x3/uL (3.5-10.5)
[2022-02-14 15:27] LABS: Anion Gap 13 mmol/L (10-20); BUN (Urea Nitrogen) 16 mg/dL (8.4-25.7); Calc. Creatinine Clearance 0 mL/min (70-130); Calcium 8.7 mg/dL (7.8-10.44); Carbon Dioxide 22 mmol/L (23-31); Chloride 110 mmol/L (98-107); Estimated GFR 97; Glucose 83 mg/dL (80-115); Potassium 4.7 mmol/L (3.5-5.1); Sodium 140 mmol/L (136-145)
== END 2022-02-14 13:20 | disposition home or self-care (01) ==
LOC: LABBT 13:19
PROVIDERS: ATTEND Thoracic Surgery (Cardiothoracic Vascular Surgery)
DX: Z01.812 Encounter for preprocedural laboratory examination (principal); I65.22 Occlusion and stenosis of left carotid artery; Z20.822 Contact with and (suspected) exposure to COVID-19
CPT/HCPCS: 80048; 85027; 87811

== ENCOUNTER 2022-02-14 14:45 | Inpatient (IN) | payer MEDICARE, BC ==
[2022-02-16] MEDS ORDERED: Bupivacaine PF 0.5% 30 ML VIAL ONE (06:26)
[2022-02-16] MEDS ORDERED: Heparin 5,000 UNITS/ML VIAL ONE (06:26)
[2022-02-16] MEDS ORDERED: Protamine Sulfate 50 MG/5 ML VIAL ONE (06:26)
[2022-02-16] MEDS ORDERED: EPINEPHrine 1 MG/ML AMP ONE (06:26)
[2022-02-16] MEDS ORDERED: fentaNYL Citrate/PF 100 MCG/2 ML SYRINGE ONE (06:55)
[2022-02-16] MEDS ORDERED: Clindamycin/D5W 900 mg/50 ml Premix Bag ONE (07:19)
[2022-02-16] MEDS ORDERED: Phenylephrine 10 MG/ML VIAL ONE (07:40)
[2022-02-16] MEDS ORDERED: Metoclopramide HCl 10 MG/2 ML VIAL ONE (07:40)
[2022-02-16] MEDS ORDERED: Calcium Chloride 1 GM/10 ML Abboject SYRINGE ONE (07:40)
[2022-02-16] MEDS ORDERED: Ondansetron PF 4 MG/2 ML Vial ONE (07:40)
[2022-02-16] MEDS ORDERED: Rocuronium Bromide 10 MG/ML (10ML VIAL) ONE (07:40)
[2022-02-16] MEDS ORDERED: Glycopyrrolate 0.2 MG/ML 5 ML SYRINGE ONE (07:40)
[2022-02-16] MEDS ORDERED: PROPOFOL 200 MG/20 ML VIAL ONE (07:40)
[2022-02-16] MEDS ORDERED: SUGAMMADEX SODIUM 200 MG/2 ML VIAL ONE (08:34)
[2022-02-16] MEDS ORDERED: traMADol HCl 50 MG TAB PO PRN (08:59)
[2022-02-16] MEDS ORDERED: hydrALAZINE 20 MG/ML VIAL SLOW IVP PRN (08:59)
[2022-02-16] MEDS ORDERED: Calcium Carbonate 500 MG ChewTAB PO PRN (08:59)
[2022-02-16] MEDS ORDERED: Docusate 100 MG CAP PO PRN (08:59)
[2022-02-16] MEDS ORDERED: Fentanyl 100 MCG/2 ML VIAL SLOW IVP PRN (08:59)
[2022-02-16] MEDS ORDERED: Phenylephrine 40 MG in Sodium Chloride 0.9% 250 ML 250 ML IVPB PRN (08:59)
[2022-02-16] MEDS ORDERED: Nitroglycerin 50 MG/250 ML BOT 250 ML IVPB PRN (08:59)
[2022-02-16] MEDS ORDERED: Promethazine HCl 25 MG/ML VIAL IM PRN (08:59)
[2022-02-16] MEDS ORDERED: Ondansetron PF 4 MG/2 ML Vial IVP PRN (08:59)
[2022-02-16] MEDS ORDERED: Acetaminophen 325 MG TAB PO PRN (08:59)
[2022-02-16] MEDS ORDERED: Atorvastatin Calcium 20 MG TAB PO SCH (09:00)
[2022-02-16] MEDS ORDERED: Aspirin 81 mg Enteric Coated Tablet PO SCH (09:00)
[2022-02-16] MEDS: Sodium Chloride 0.9% 1,000 ML IV SCH ×2 (09:48→12:28)
[2022-02-16 12:10] VITALS: BMI 23.2
[2022-02-16 12:17] VITALS: BP 99/59
[2022-02-16] MEDS: Clindamycin/D5W 900 MG in Premix Bag 1 BAG IVPB SCH ×2 (12:35→17:59)
[2022-02-16] MEDS: Acetaminophen ER (8hr) 650 MG TAB PO PRN (20:56)
[2022-02-16] MEDS ORDERED: Atorvastatin Calcium 40 MG TAB PO SCH (21:00)
[2022-02-17] MEDS: Clindamycin/D5W 900 MG in Premix Bag 1 BAG IVPB SCH ×2 (00:37→05:48)
[2022-02-17] MEDS: Acetaminophen ER (8hr) 650 MG TAB PO PRN (05:39)
[2022-02-17] MEDS: Sodium Chloride 0.9% 1,000 ML IV SCH (07:15)
[2022-02-17 07:23] VITALS: TEMP 97.9
[2022-02-17] MEDS ORDERED: Clopidogrel Bisulfate 75 MG TAB PO SCH (12:00)
== END 2022-02-17 08:50 | disposition home or self-care (01) | DRG 35 ==
LOC: SURG A 02-16 05:46 → CCU 02-16 11:59
PROVIDERS: ADMIT Thoracic Surgery (Cardiothoracic Vascular Surgery); ATTEND Thoracic Surgery (Cardiothoracic Vascular Surgery)
PROC: 037J3DZ Dilation of Left Common Carotid Artery with Intraluminal Device, Percutaneous Approach (ICD-10-PCS; principal; 2022-02-16)
DX: I65.22 Occlusion and stenosis of left carotid artery (principal); I25.110 Atherosclerotic heart disease of native coronary artery with unstable angina pectoris; Z20.822 Contact with and (suspected) exposure to COVID-19; K21.9 Gastro-esophageal reflux disease without esophagitis; I35.0 Nonrheumatic aortic (valve) stenosis; Z79.899 Other long term (current) drug therapy; Z79.01 Long term (current) use of anticoagulants; Z79.82 Long term (current) use of aspirin; Z95.1 Presence of aortocoronary bypass graft; Z87.891 Personal history of nicotine dependence; Z88.0 Allergy status to penicillin
CPT/HCPCS: 76000; 94640; C1769; C1876; C1884; J0171; J1644; J2370; J2405; J2704; J2720; J2765; J3490; J7050; J7620; P9045; S0020